=== PATIENT | male | born 1995 | race Caucasian/White ===

== ENCOUNTER 2017-07-17 17:55 | Emergency (ER) | payer BC ==
[2017-07-17 20:26] VITALS: BP 102/63
[2017-07-17 20:40] LABS: Hematocrit 45 % (42-52); Hemoglobin 15.6 g/dl (14.0-18.0); Mean Corpuscular HGB Conc 34 g/dl (31-36); Mean Corpuscular Hemoglobin 31 pg (27-31); Mean Corpuscular Volume 91 fL (80-94); Mean Platelet Volume 8 um3 (7.4-10.4); Red Cell Distribution Width 13 % (10.5-15); White Blood Count 4.4 10^3/ul (3.5-10.8)
[2017-07-17 21:01] LABS: BUN/Creatinine Ratio 9.2 (8-20); Calcium 10.2 mg/dL (8.6-10.3); EGFR African American 112.1 (>60); EGFR Non-African American 87.1 (>60); Globulin 2.7 g/dL (2-4); Potassium 4.1 mmol/L (3.5-5.0); Total Bilirubin 0.7 mg/dL (0.2-1.0); Total Protein 7.7 g/dL (6.4-8.9)
--- NOTE | 2017-07-18 04:14 | PN ---
Progress Note - Progress Note Date of Service: 07/17/17 - Pt LWBS from waiting room
== END 2017-07-17 21:33 | disposition left against medical advice (07) ==
LOC: ED 17:55
DX: R10.9 Unspecified abdominal pain (principal); Z53.21 Procedure and treatment not carried out due to patient leaving prior to being seen by health care provider
CPT/HCPCS: 36415; 80053; 83690; 85025; 86141; 99282